=== PATIENT | female | born 1985 | race Two or more races ===

== ENCOUNTER 2019-06-06 07:38 | Emergency (ER) | payer SELFPAY ==
[~2019-06-06] VITALS: Ht 162.6 cm; Wt 100.7 kg
[2019-06-06 07:48] VITALS: BP 125/77
[2019-06-06] MEDS ORDERED: OXYcodone/APAP 5/325MG TABLET ONE (08:17)
[2019-06-06] MEDS ORDERED: SILVER SULF. CRM 1% , 25GM ONE (08:17)
[2019-06-06] MEDS ORDERED: OXYcodone/APAP 5/325MG TABLET PO ONE (08:30)
[2019-06-06] MEDS ORDERED: SILVER SULF. CRM 1% , 25GM TP ONE (08:30)
== END 2019-06-06 09:16 | disposition home or self-care (01) ==
LOC: ED 08:17
DX: T22.252A Burn of second degree of left shoulder, initial encounter (principal); Z87.891 Personal history of nicotine dependence; X08.8XXA Exposure to other specified smoke, fire and flames, initial encounter; Y93.89 Activity, other specified; Y92.098 Other place in other non-institutional residence as the place of occurrence of the external cause; Y99.8 Other external cause status
CPT/HCPCS: 16020; 99283